=== PATIENT | male | born 1960 | race Caucasian/White ===

== ENCOUNTER → 2021-04-07 14:46 | Outpatient (CLI) | payer OTHER, SELFPAY ==
--- NOTE | 2021-04-07 14:49 | DI.RAD.S_ITS ---
PROCEDURE: XR KNEE LT 3V INDICATIONS: L knee injury, limited flexion TECHNIQUE: 3 views of the knee were acquired. COMPARISON: None. FINDINGS: Bones: No fractures or dislocations but there is a [id number] degree of knee joint osteoarthritis best seen at the medial compartment of the left knee and also mild to moderate such degeneration at the lateral facet of the patellofemoral joint. No effusion or loose body found.. No suspicious bony lesions. Soft tissues: No joint effusion. No suspicious soft tissue calcifications. IMPRESSION: No acute trauma seen. [id number] knee joint osteoarthritis at the medial compartment and the lateral facet of the patellofemoral joint. Dictated by: Sean Gross M.D. on 04/07/2021 at 15:37 Approved by: Sean Gross M.D. on 04/07/2021 at 15:38
== END ==
PROVIDERS: PCP Family Medicine; Referring Provider Physician Assistant; Visit Provider Physician Assistant
DX: S89.92XA Unspecified injury of left lower leg, initial encounter (principal); M17.12 Unilateral primary osteoarthritis, left knee
CPT/HCPCS: 73562

== ENCOUNTER → 2021-06-16 08:56 | Outpatient (CLI) | payer OTHER, SELFPAY ==
[2021-06-16 09:19] LABS: COVID19 -Nasal RAPID POSITIVE (Negative)
== END ==
PROVIDERS: PCP Family Medicine; Visit Provider Nurse Practitioner
DX: U07.1 COVID-19 (principal)
CPT/HCPCS: 87635

== ENCOUNTER → 2022-08-03 09:18 | Outpatient (CLI) | payer OTHER, SELFPAY ==
--- NOTE | 2022-08-03 09:19 | DI.US.S_ITS ---
PROCEDURE: US SOFT TISSUE HEAD AND NECK INDICATIONS: soft tissue mass left clavicle area TECHNIQUE: Real-time scanning was performed of the neck region of interest, with image documentation. COMPARISON: None. FINDINGS: Focused ultrasound examination in soft tissue near left clavicle shows a 3.7 x 2.6 x 5.4 cm hypoechoic structure within subcutaneous soft tissue with internal septation and internal low level and internal subtle echogenic foci. No internal vascularity is seen. IMPRESSION: Complex cystic structure in left shoulder soft tissue adjacent to left clavicle and measures 3.7 x 2.6 x 5.4 cm in size. This could represent a complex ganglion cyst. Cystic neoplasm cannot be excluded. Consider MRI of shoulder without and with contrast for further evaluation of this region. Dictated by: Luciano Vega M.D. on 08/03/2022 at 10:00 Approved by: Luciano Vega M.D. on 08/03/2022 at 10:02
== END ==
PROVIDERS: PCP Family Medicine; Referring Provider Nurse Practitioner Family; Visit Provider Nurse Practitioner Family
DX: M79.89 Other specified soft tissue disorders (principal)
CPT/HCPCS: 76536

== ENCOUNTER → 2022-08-31 09:07 | Outpatient (CLI) | payer OTHER, SELFPAY | PROVIDERS: PCP Family Medicine; Referring Provider Family Medicine; Visit Provider Family Medicine | DX: M79.89 Other specified soft tissue disorders (principal); Z53.20 Procedure and treatment not carried out because of patient's decision for unspecified reasons ==

== ENCOUNTER → 2022-11-12 07:27 | Outpatient (CLI) | payer OTHER, SELFPAY ==
[2022-11-12 10:06] LABS: Influenza A - CEPHEID Flu A NEGATIVE (NEGATIVE); Influenza B - CEPHEID Flu B NEGATIVE (NEGATIVE); Respiratory Syncytial Virus Negative (Negative)
[2022-11-12 10:07] LABS: COVID-19 CEPHEID 4-PLEX PCR Negative (Negative)
== END ==
PROVIDERS: PCP Family Medicine; Visit Provider Registered Nurse
DX: R05.1 Acute cough (principal)
CPT/HCPCS: 0241U